=== PATIENT | female | born 1985 | race Caucasian/White ===

== ENCOUNTER 2016-05-16 14:08 | Emergency (ER) | payer OTHER ==
[~2016-05-16] VITALS: Ht 162.6 cm; Wt 93.4 kg
[~2016-05-16 14:08] MED LIST: DOXYCYCLINE MO100 MG PO; IBUPROFEN800 MG PO; MACROBID100 MG PO; PERCOCET 325 MG1 TA2 PO; PRENATAL1 TA2 PO; PYRIDIUM200 MG PO; [UNRECOGNIZED DRUG - OTHER] PO
[2016-05-16] MEDS ORDERED: METHADONE10 MG/1 M2 PO (15:09)
[2016-05-16 15:24] LABS: ABSOLUTE BASOPHIL COUNT 0 /CUMM (0.0-0.2); ABSOLUTE EOSINOPHIL COUNT 0.1 /CUMM (0.0-0.7); ABSOLUTE GRANULOCYTE CT 5.9 /CUMM (1.4-6.5); ABSOLUTE LYMPH COUNT 3.3 /CUMM (1.2-3.4); ABSOLUTE MONOCYTE COUNT 0.9 /CUMM (0.10-0.60); BASOPHIL % 0.5 % (0.0-2.0); GRANULOCYTE % 57.7 % (42.2-75.2); MEAN CORPUSCULAR HGB 29.7 PG (27.0-31.0); MEAN CORPUSCULAR HGB CONC 33.8 G/DL (33.0-37.0); MEAN PLATELET VOLUME 7.9 FL (7.4-10.4); PLATELET COUNT 327 /CUMM (130-400); RBC DISTRIBUTION WIDTH 13.5 % (11.5-14.5); RED BLOOD CELL CT 4.54 /CUMM (4.20-5.40); WHITE BLOOD CELL COUNT 10.3 /CUMM (4.8-10.8)
--- NOTE | 2016-05-16 15:30 | ED GI/GU/ABDOMINAL COMPLAINT ---
History of Present Illness General Chief Complaint: Female Urogenital Problems Stated Complaint: ?PREG LAST MENSES IN JAN Source: patient Exam Limitations: no limitations Vital Signs & Intake/Output Vital Signs & Intake/Output Vital Signs Date Time Temp Pulse Resp B/P Pulse O2 O2 Flow FiO2 Ox Delivery Rate 05/16 1732 99 18 135/60 97 05/16 1421 97.6 94 20 120/85 98 Room Air Allergies Coded Allergies: Penicillins (PT MOM TOLD HER IT WAS AN ALLERGY 05/16/16) codeine (HIVES, VOMITING 05/16/16) Reconcile Medications Methadone HCl (Unknown Strength) ORAL.CONC (Unknown Dose) PO DAILY RECOVERY ( Reported) Triage Note: PT STATES SHE TOOK 3 TEST AND 2 WERE FAINTLY POSITIVE AND ONE NEG. STATES HER LAST MENSES WAS JANUARY FOR ONE DAY Triage Nurses Notes Reviewed? yes ? N Is pt currently ? No HPI: this patient is a G4A1P3 female who presented to the emergency department today for chief complaint of, "I think I might be ." The patient reported that in November or December of last year she thinks that she had a miscarriage. She reported that she got her period for one day in January and, "I only spotted a little bit." The patient reported that her normal menses last 7 or 8 days and is heavy. She reported that she has not had any vaginal bleeding since January. She reported that today she took 3 home tests and 2 of them were, "weakly positive," and one of them was negative. She reported that she feels more bloated than normal. She reported that she has been having heartburn which she normally gets when she is . She also reported nausea and vomiting approximately twice a week, but reported that sometimes she has this regularly due to her heartburn. The patient denied any fevers, chills, chest pain, difficulty breathing, abdominal pain, back pain, diarrhea, urinary burning , urgency, frequency, blood in the urine, vaginal itching, vaginal discharge, vaginal bleeding, or any other associated symptoms. This patient is currently on methadone. She does not take any control. (ISAEL STINSON,NILDA) Past History Travel History Traveled to [place] past 21 day No Medical History Any Pertinent Medical History? 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 No (NILDA KIRKLAND PA-C) Review of Systems Review of Systems Constitutional: Reports: no symptoms. EENTM: Reports: no symptoms. Respiratory: Reports: no symptoms. Cardiovascular: Reports: no symptoms. GI: Reports: see HPI. Genitourinary: Reports: no symptoms. Musculoskeletal: Reports: no symptoms. Skin: Reports: no symptoms. Neurological/Psychological: Reports: no symptoms. All Other Systems: Reviewed and Negative (NILDA KIRKLAND PA-C) Physical Exam Physical Exam Gastrointestinal: normal bowel sounds, soft, non-tender, no organomegaly, NONDISTENDED. nO ORGANOMEGALY. nO REBOUND OR GUARDING. nO PERITONEAL SIGNS. nO MASSES APPRECIATED Comments: Well-developed well-nourished person in no acute distress HEENT: Normal EENT exam, head normocephalic, moist mucous membranes Neck: Supple. No lymphadenopathy Back: Normal gait Cardiovascular: Regular rate and rhythm with no murmurs, rubs, or gallops Respiratory: No respiratory distress. Speaking in full sentences Extremity: No edema. Normal and equal pulses Neuro: Alert oriented x3, cranial nerves II through XII grossly intact. Skin: No appreciable rash on exposed skin, skin is warm and dry. Psych: Mood and affect is normal Core Measures ACS in differential dx? No Severe Sepsis Present: No Septic Shock Present: No (NILDA KIRKLAND PA-C) Progress Differential Diagnosis: appendicitis, biliary colic, bowel obstruction, colon cancer, cholecystitis, diverticulitis, ectopic , endometritis, gastritis, hepatitis, hernia, ischemic bowel, inflamm bowel dis, intrauterine , kidney stone, ovarian cyst, ovarian torsion, pancreatitis, PID/ cervicitis, PUD/GERD, perforated viscous, threatened AB, UTI/pyelo Plan of Care: Orders Procedure Date/time Status HUMAN BETA HCG TITRE 05/16 1510 Complete HUMAN BETA HCG SCREEN 05/16 1448 Complete CBC WITHOUT DIFFERENTIAL 05/16 1448 Complete BASIC METABOLIC PANEL 05/16 1448 Complete URINALYSIS 05/16 1412 Complete Laboratory Tests 05/16/16 1539: Urine Test Cancelled 05/16/16 1510: Anion Gap 7, Estimated GFR > 60, BUN/Creatinine Ratio 20.0, Glucose 90, Calcium 9.8, Beta HCG, Quant < 2.4, Total Beta HCG NEGATIVE, CBC w Diff NO MAN DIFF REQ, RBC 4.54, MCV 88.0, MCH 29.7, RDW 13.5, MPV 7.9, Gran % 57.7, Lymphocytes % 32.0 , Monocytes % 8.8, Eosinophils % 1.0, Basophils % 0.5, Absolute Granulocytes 5.9 , Absolute Lymphocytes 3.3, Absolute Monocytes 0.9 H, Absolute Eosinophils 0.1, Absolute Basophils 0, PUBS MCHC 33.8, Urinalysis MANY H, Urine Color YEL, Urine Clarity CLDY H, Urine pH 8.5 H, Ur Specific [place] 1.015, Urine Protein 30 H , Urine Ketones NEG, Urine Nitrite NEG, Urine Bilirubin NEG, Urine Urobilinogen 0.2, Ur Leukocyte Esterase SMALL H, Ur Microscopic SEDIMENT EXAMINED, Urine WBC 3-5 H, Ur Epithelial Cells MANY H, Urine Bacteria MANY H, Urine Hemoglobin NEG, Urine Glucose NEG 05/16/16 1507: Beta HCG, Quant Cancelled Diagnostic Imaging: Viewed by Me: Ultrasound. Discussed w/RAD: Ultrasound. Radiology Impression: PATIENT: TOMAS DIAZ PRESENT AGE: 30 PATIENT ACCOUNT NO: [id number] : 83 LOCATION: [facility] ORDERING PHYSICIAN: NILDA KIRKLAND PA-C SERVICE DATE: 05/16/16 EXAM TYPE: US - US-TRANSVAGINAL EXAMINATIONS: ULTRASOUND PELVIS. CLINICAL INFORMATION: Bloating with positive test. Patient denies pain to the technologist performing the exam. History of previous left oophorectomy. COMPARISON: None. TECHNIQUE: Transabdominal followed by transvaginal imaging was performed. Color Doppler imaging is included limited waveform analysis. FINDINGS: The uterus is of normal size and echogenicity measuring 7.8 x 3.7 x 4.2 cm. A homogeneous endometrium is identified measuring 0.4 cm. The cervical length is 3.1 cm. Both ovaries are of normal size and echogenicity. The right measures right ovary is well visualized measuring 2.3 x 1.2 x 2.0 cm for a volume of 2.9 cc. Blood flow is documented. Left ovary is not visualized on this exam. There is no free fluid in the cul-de- sac. IMPRESSION: Normal-appearing exam without evidence of an intra or extrauterine , however neither diagnosis is excluded on this exam. Correlation with beta hCG measurements is recommended and follow-up imaging as indicated. DICTATED BY: CARLY BRYAN MD DATE/TIME DICTATED:05/16/161721 GYMNASTICS COACH OR INSTRUCTOR:GRICEL DATE/TIME TRANSCRIBED:05/16/161721 CONFIDENTIAL, DO NOT COPY WITHOUT APPROPRIATE AUTHORIZATION. <Electronically signed in Other Vendor System> SIGNED BY: CARLY BRYAN MD 05/16/161729 Initial ED EKG: none Comments: 05/16/2016 5:37:40 PM: I was at the patient's bedside to update her on her imaging and laboratory studies. This patient has a negative urine beta hCG screen. No increase in white blood cell count. Unremarkable transvaginal ultrasound showing no fibroids, ovarian cysts, ovarian torsion, or any masses. Discussed with this patient the option to get a CT scan here in the emergency department. Discussed with her the risks of radiation and also the benefits of getting the scan. She is refusing at this time. She would like a new AUTO WHEEL ALIGNMENT SPECIALIST. I counseled the patient on the importance of following up with the AUTO WHEEL ALIGNMENT SPECIALIST as she has not had her menses since January. Also counseled the patient on the importance of returning should her symptoms worsen. She is stable for discharge home at this time. (NILDA KIRKLAND PA-C) Departure Departure Disposition: HOME OR SELF CARE Condition: Stable Clinical Impression Primary Impression: Abdominal bloating Referrals: DIEGO TODD APRN (PCP/Family) FERMIN DUPONT,GRAYSON Santillan Additional Instructions: Please call to make an appointment with the AUTO WHEEL ALIGNMENT SPECIALIST whose information has been provided to you in this packet. Please return to the emergency department for any worsening symptoms or concerns. Departure Forms: Customer Survey General Discharge Information (NILDA KIRKLAND PA-C) PA/CHEMISTRY LECTURER Co-Sign Statement Statement: ED Attending supervision documentation- [] I saw and evaluated the patient. I have also reviewed all the pertinent lab results and diagnostic results. I agree with the findings and the plan of care as documented in the PA's/CHEMISTRY LECTURER's documentation. [x] I have reviewed the ED Record and agree with the PA's/CHEMISTRY LECTURER's documentation. [] Additions or exceptions (if any) to the PAs/CHEMISTRY LECTURER's note and plan are summarized below: [] (LEE GATES DO)
--- NOTE | 2016-05-16 17:30 | ULTRASOUND REPORT ---
EXAMINATIONS: ULTRASOUND PELVIS. CLINICAL INFORMATION: Bloating with positive test. Patient denies pain to the technologist performing the exam. History of previous left oophorectomy. COMPARISON: None. TECHNIQUE: Transabdominal followed by transvaginal imaging was performed. Color Doppler imaging is included limited waveform analysis. FINDINGS: The uterus is of normal size and echogenicity measuring 7.8 x 3.7 x 4.2 cm. A homogeneous endometrium is identified measuring 0.4 cm. The cervical length is 3.1 cm. Both ovaries are of normal size and echogenicity. The right measures right ovary is well visualized measuring 2.3 x 1.2 x 2.0 cm for a volume of 2.9 cc. Blood flow is documented. Left ovary is not visualized on this exam. There is no free fluid in the cul-de-sac. IMPRESSION: Normal-appearing exam without evidence of an intra or extrauterine , however neither diagnosis is excluded on this exam. Correlation with beta hCG measurements is recommended and follow-up imaging as indicated.
[2016-05-16 17:32] VITALS: BP 135/60
== END 2016-05-16 17:59 ==
LOC: ERH 14:08
PROVIDERS: Physician Assistant Medical
DX: R14.0 Abdominal distension (gaseous) (principal)
CPT/HCPCS: 81001; 81025

== ENCOUNTER 2017-04-17 07:47 | Emergency (ER) | payer OTHER ==
[~2017-04-17] VITALS: Ht 162.6 cm; Wt 95.3 kg
[~2017-04-17 07:47] MED LIST changes: +METHADONE10 MG/1 M2 PO
--- NOTE | 2017-04-17 09:17 | ED GI/GU/ABDOMINAL COMPLAINT ---
History of Present Illness General Chief Complaint: General Adult Stated Complaint: LOWER BACK AND SHOULDER PAIN Source: patient Exam Limitations: no limitations Vital Signs & Intake/Output Vital Signs & Intake/Output Vital Signs Date Time Temp Pulse Resp B/P B/P Pulse O2 O2 Flow FiO2 Mean Ox Delivery Rate 04/17 1141 107 20 120/81 95 Room Air 04/17 1119 97.6 96 16 108/71 98 Room Air 04/17 0800 97.4 88 20 108/72 97 Room Air Allergies Coded Allergies: Penicillins (PT MOM TOLD HER IT WAS AN ALLERGY 05/16/16) codeine (HIVES, VOMITING 05/16/16) Reconcile Medications Methadone HCl 10 MG/ML ORAL.CONC 76 MG PO DAILY RECOVERY (Reported) Omeprazole 40 MG CAPSULE.DR 1 CAP PO DAILY acid reflux Sulfamethoxazole/Trimethoprim (Bactrim Ds Tablet) 800 MG-160 MG TABLET 1 TAB PO BID uti Triage Note: PT C/O LOWER BACK PAIN THAT RADIATES INTO BOTH SHOULDER BLADES. PT STATES SHE IS HAVING STOMACH BLOATING. STATES SHE HASN'T HAD A PERIOD FOR A YEAR. STATES SHE HAS BLOOD IN STOOL A FEW TIMES A WEEK. STATES SHE HAS HEARTBURN EVERYDAY. +PRESSURE WITH URINATION Triage Nurses Notes Reviewed? yes ? n Is pt currently ? No Onset: Abrupt Timing: recent history Radiation: no radiation No Modifying Factors: none HPI: 31-year-old female comes into the emergency room for further evaluation of multiple complaints. Patient reports that she's been experiencing low back pain. Some intermittent blood in her stool. He's also had some intermittent upper abdominal pain with acid reflux. Denies any fever. She has some intermittent vomiting at times. nothing seems to make the symptoms better or worse. Comes in for further evaluation. The symptoms have been intermittent for months. The low back pain has been over last few days. Past History Travel History Traveled to [place] past 21 day No Medical History Any Pertinent Medical History? see below for history Neurological: NONE EENT: NONE Cardiovascular: NONE Respiratory: NONE Gastrointestinal: NONE Hepatic: NONE Renal: FREQUENT UTI'S Musculoskeletal: NONE Psychiatric: NONE Endocrine: NONE Blood Disorders: NONE Cancer(s): NONE PLAN NURSE/Reproductive: NONE Surgical History Surgical History: N Psychosocial History What is your primary language Nicaraguan Tobacco Use: Current Not Daily ETOH Use: denies use Illicit Drug Use: denies illicit drug use Family History Hx Contributory? No Review of Systems Review of Systems Constitutional: Reports: see HPI. EENTM: Reports: no symptoms. Respiratory: Reports: no symptoms. Cardiovascular: Reports: no symptoms. GI: Reports: see HPI. Genitourinary: Reports: see HPI. Musculoskeletal: Reports: no symptoms. Skin: Reports: no symptoms. Neurological/Psychological: Reports: no symptoms. Hematologic/Endocrine: Reports: no symptoms. Immunologic/Allergic: Reports: no symptoms. All Other Systems: Reviewed and Negative Physical Exam Physical Exam General Appearance: well developed/nourished, no apparent distress, alert, awake Head: atraumatic, normal appearance Eyes: Bilateral: normal appearance. Ears, Nose, Throat, Mouth: hearing grossly normal, moist mucous membrane Neck: normal inspection Respiratory: normal breath sounds, no respiratory distress Cardiovascular: regular rate/rhythm Gastrointestinal: soft, non-tender Back: normal inspection, normal range of motion Extremities: normal range of motion Neurologic/Psych: awake, alert, oriented x 3, normal gait Skin: intact, normal color Core Measures ACS in differential dx? No Sepsis Present: No Sepsis Focused Exam Completed? No Progress Differential Diagnosis: appendicitis, bowel obstruction, cholecystitis, diverticulitis, ectopic , gastritis, ischemic bowel, inflamm bowel dis, kidney stone, ovarian cyst, pancreatitis, PID/cervicitis, peptic ulcer, PUD/GERD , SBO, UTI/pyelo Plan of Care: Orders Procedure Date/time Status LIPASE 04/17 0917 Complete LACTIC ACID 04/17 916 Complete COMPREHENSIVE METABOLIC PANEL 04/17 916 Complete CBC WITHOUT DIFFERENTIAL 04/17 916 Complete URINE 04/17 0801 Complete URINALYSIS 04/17 0801 Complete Laboratory Tests 04/17/17 1217: Lactic Acid Cancelled 04/17/17 0925: Anion Gap 10, Estimated GFR > 60, BUN/Creatinine Ratio 21.7, Glucose 103 H, Lactic Acid 1.4, Calcium 9.5, Total Bilirubin 0.4, AST 29, ALT 51, Alkaline Phosphatase 55, Total Protein 7.0, Albumin 4.0, Globulin 3.0, Albumin/Globulin Ratio 1.3, Lipase 34, CBC w Diff NO MAN DIFF REQ, RBC 4.13 L, MCV 86.8, MCH 29.6, MCHC 34.2, RDW 12.6, MPV 7.6, Gran % 62.6, Lymphocytes % 30.3, Monocytes % 5.9, Eosinophils % 0.9, Basophils % 0.3, Absolute Granulocytes 6.2, Absolute Lymphocytes 3.0, Absolute Monocytes 0.6, Absolute Eosinophils 0.1, Absolute Basophils 0 04/17/17 0821: Urine Color YEL, Urine Clarity [place] H, Urine pH 6.0, Ur Specific [place] >= 1.030, Urine Protein NEG, Urine Ketones NEG, Urine Nitrite POS H, Urine Bilirubin NEG, Urine Urobilinogen 0.2, Ur Leukocyte Esterase TRACE H, Ur Microscopic SEDIMENT EXAMINED, Urine RBC 1-3, Urine WBC 10-15 H, Ur Epithelial Cells MOD H, Urine Bacteria MANY H, Urine Mucus FEW, Urine Hemoglobin NEG, Urine Glucose NEG, Urine Test NEGATIVE Diagnostic Imaging: Viewed by Me: CT Scan. Discussed w/RAD: CT Scan. Radiology Impression: PATIENT: TOMAS DIAZ PRESENT AGE: 31 PATIENT ACCOUNT NO: [id number] : 83 LOCATION: [facility] ORDERING PHYSICIAN: Pollo MARIE SERVICE DATE: 04/17/17 EXAM TYPE: CAT - CT ABD & PELVIS W IV CONTRAST EXAMINATION: CT ABDOMEN AND PELVIS WITH CONTRAST CLINICAL INFORMATION: Abdominal pain and low back pain. COMPARISON: CT scan of the abdomen and pelvis 10/11/2012. TECHNIQUE: Multidetector volumetric imaging was performed of the abdomen and pelvis following IV administration of 95 mL of Optiray 320 intravenous contrast. Sagittal and coronal reformatted images were obtained on the technologist's workstation. DLP: 582.78 mGy-cm FINDINGS: LUNG BASES: There is atelectasis at the right base and in the inferior lingula. The heart is normal in size. There are no pericardial or pleural effusions. LIVER, GALLBLADDER, AND BILIARY TREE: The liver is enlarged, and measures 22 cm in maximum sagittal dimension. It has normal shape and contour. It has diffusely decreased density consistent with hepatic steatosis, similar compared to the prior study. There is a small area of slightly increased density in the left lobe of the liver adjacent to the gallbladder, which may be consistent with an area of focal fatty sparing. The previously noted hyperdensity in the left lobe of the liver is no longer visualized. The intrapelvic ducts are not dilated. The gallbladder is contracted on the current study. PANCREAS: Unremarkable. SPLEEN: The spleen is normal in size and density. ADRENAL GLANDS: The adrenal glands are not enlarged. KIDNEYS AND URETERS: The kidneys are normal in size, shape, and attenuation. No hydronephrosis, hydroureter, or calculi seen. No perinephric stranding. BLADDER: The urinary bladder is almost completely decompressed. GASTROINTESTINAL TRACT: The stomach and small bowel are unremarkable. The appendix is not discretely identified. There is moderate stool within the large bowel. There is no evidence of inflammation or obstruction. ABDOMINAL WALL: There is a small fat-containing umbilical hernia which is unchanged. LYMPH NODES : There are small mesenteric and pericecal lymph nodes, demonstrated on prior imaging. There is no pelvic or abdominal lymphadenopathy. VASCULAR: The vascular structures are unremarkable. PELVIC VISCERA: The uterus is anteverted. It is not enlarged. The adnexa appear normal bilaterally. There is no free fluid in the pelvis. OSSEOUS STRUCTURES: There are no acute osseous findings. There is a stable dextroscoliosis. The study redemonstrates the compression fracture of the superior body of L1, which is stable. The coccyx is angulated anteriorly with respect to the sacrum, which appears chronic. IMPRESSION: 1. The study demonstrates hepatic steatosis. The liver is mildly prominent. The hyperdense area in the left lobe of the liver has resolved compared to the prior study. 2. No masses or free fluid are noted in the pelvis. 3. The small and large bowel are unremarkable. 4. The study redemonstrates the superior compression fracture the body of L1. The coccyx is angulated anteriorly with respect to the sacrum, which appears chronic. There are no acute osseous findings. DICTATED BY: Jason Loya MD DATE/TIME DICTATED:04/17/171019 FRUIT HARVESTER:GRICEL DATE/TIME TRANSCRIBED:04/17/171019 CONFIDENTIAL, DO NOT COPY WITHOUT APPROPRIATE AUTHORIZATION. <Electronically signed in Other Vendor System> SIGNED BY: Jason Loya MD 04/17/17 1036 Initial ED EKG: none Departure Departure Disposition: HOME OR SELF CARE Condition: Stable Clinical Impression Primary Impression: Abdominal pain Referrals: Suzette Delgado APRN (PCP/Family) Vincenzo Hart MD Additional Instructions: Take omeprazole and Bactrim as prescribed. Follow-up with wool spotter provided. Return if any concerns worsening symptoms. Please go over all results of today's visit with your primary care doctor. Contact your primary care doctor to let them know you were here in the emergency room. There may be nonspecific findings which may not be related to your visit today here in the emergency room but may require further evaluation and chronic monitoring by your primary care doctor. If you had a laceration today the chance of foreign body always remains. You should follow-up with your primary care doctor for recheck in 3-5 days for a wound check. If you had an x-ray done there is a chance that a fracture could have been missed on initial read and you should follow-up with your primary care doctor for repeat x-rays if symptoms persist. If your blood pressure was elevated here in the emergency room please have rechecked by ciara primary care doctor within the next 48. If you were prescribed a narcotic here in the emergency room or any type of controlled substances you're not allowed to drive while taking this medication or operate any type of heavy machinery. Narcotics can make you feel lightheaded dizziness nausea and can cause constipation. You may need to pickup driver a stool softener. Thank you for choosing [facility] emergency room. Please return to the emergency room immediately if you have any other concerns worsening of symptoms. Departure Forms: Customer Survey General Discharge Information Prescriptions: Current Visit Scripts Omeprazole 1 CAP PO DAILY #30 CAP Ref 1 Sulfamethoxazole/Trimethoprim (Bactrim Ds Tablet) 1 TAB PO BID #14 TAB Comments 04/17/2017 1:28:06 PM Patient clinically looks well. Patient is no apparent distress. Patient is nontoxic-appearing. Resting comfortably in room. No acute findings. Follow-up with GI doctor and PCP. Return if any other concerns worsening symptoms. ED Attending Observation Initial Observation Note: I have seen and personally examined TOMAS DIAZ on 04/17/17 at 0933. I agree with the current emergency department documentation. The disposition (admission or discharge) is uncertain at this time, she needs a period of observation for the following reason(s): The ED Nurse caring for this patient has been personally informed as to what the patient is being observed for.
[2017-04-17 09:55] LABS: ABSOLUTE BASOPHIL COUNT 0 /CUMM (0.0-0.2); ABSOLUTE EOSINOPHIL COUNT 0.1 /CUMM (0.0-0.7); ABSOLUTE GRANULOCYTE CT 6.2 /CUMM (1.4-6.5); ABSOLUTE MONOCYTE COUNT 0.6 /CUMM (0.10-0.60); BASOPHIL % 0.3 % (0.0-2.0); EOSINOPHIL % 0.9 % (0-5); GRANULOCYTE % 62.6 % (42.2-75.2); HEMATOCRIT 35.8 % (37-47); MEAN CORPUSCULAR HGB 29.6 PG (27.0-31.0); MEAN CORPUSCULAR HGB CONC 34.2 G/DL (33.0-37.0); MEAN CORPUSCULAR VOLUME 86.8 FL (81.0-99.0); MEAN PLATELET VOLUME 7.6 FL (7.4-10.4); PLATELET COUNT 316 /CUMM (130-400); RBC DISTRIBUTION WIDTH 12.6 % (11.5-14.5); RED BLOOD CELL CT 4.13 /CUMM (4.20-5.40); WHITE BLOOD CELL COUNT 9.9 /CUMM (4.8-10.8)
[2017-04-17] MEDS ORDERED: BACTRIM DS TAB1 EACH PO (10:29)
[2017-04-17] MEDS ORDERED: OMEPRAZOLE40 M1 PO (10:29)
--- NOTE | 2017-04-17 10:36 | CT SCAN REPORT ---
EXAMINATION: CT ABDOMEN AND PELVIS WITH CONTRAST CLINICAL INFORMATION: Abdominal pain and low back pain. COMPARISON: CT scan of the abdomen and pelvis 10/11/2012. TECHNIQUE: Multidetector volumetric imaging was performed of the abdomen and pelvis following IV administration of 95 mL of Optiray 320 intravenous contrast. Sagittal and coronal reformatted images were obtained on the technologist's workstation. DLP: 582.78 mGy-cm FINDINGS: LUNG BASES: There is atelectasis at the right base and in the inferior lingula. The heart is normal in size. There are no pericardial or pleural effusions. LIVER, GALLBLADDER, AND BILIARY TREE: The liver is enlarged, and measures 22 cm in maximum sagittal dimension. It has normal shape and contour. It has diffusely decreased density consistent with hepatic steatosis, similar compared to the prior study. There is a small area of slightly increased density in the left lobe of the liver adjacent to the gallbladder, which may be consistent with an area of focal fatty sparing. The previously noted hyperdensity in the left lobe of the liver is no longer visualized. The intrapelvic ducts are not dilated. The gallbladder is contracted on the current study. PANCREAS: Unremarkable. SPLEEN: The spleen is normal in size and density. ADRENAL GLANDS: The adrenal glands are not enlarged. KIDNEYS AND URETERS: The kidneys are normal in size, shape, and attenuation. No hydronephrosis, hydroureter, or calculi seen. No perinephric stranding. BLADDER: The urinary bladder is almost completely decompressed. GASTROINTESTINAL TRACT: The stomach and small bowel are unremarkable. The appendix is not discretely identified. There is moderate stool within the large bowel. There is no evidence of inflammation or obstruction. ABDOMINAL WALL: There is a small fat-containing umbilical hernia which is unchanged. LYMPH NODES: There are small mesenteric and pericecal lymph nodes, demonstrated on prior imaging. There is no pelvic or abdominal lymphadenopathy. VASCULAR: The vascular structures are unremarkable. PELVIC VISCERA: The uterus is anteverted. It is not enlarged. The adnexa appear normal bilaterally. There is no free fluid in the pelvis. OSSEOUS STRUCTURES: There are no acute osseous findings. There is a stable dextroscoliosis. The study redemonstrates the compression fracture of the superior body of L1, which is stable. The coccyx is angulated anteriorly with respect to the sacrum, which appears chronic. IMPRESSION: 1. The study demonstrates hepatic steatosis. The liver is mildly prominent. The hyperdense area in the left lobe of the liver has resolved compared to the prior study. 2. No masses or free fluid are noted in the pelvis. 3. The small and large bowel are unremarkable. 4. The study redemonstrates the superior compression fracture the body of L1. The coccyx is angulated anteriorly with respect to the sacrum, which appears chronic. There are no acute osseous findings.
[2017-04-17 11:41] VITALS: BP 120/81
== END 2017-04-17 11:49 ==
LOC: ERH 07:47
PROVIDERS: Physician Assistant Medical
DX: R10.10 Upper abdominal pain, unspecified (principal)
CPT/HCPCS: 74177; 81001; 81025